=== PATIENT | male | born 1980 | race Two or more races ===

== ENCOUNTER 2025-10-15 04:58 | Emergency (ER) | payer OTHER ==
[~2025-10-15] VITALS: Ht 172.7 cm; Wt 87.1 kg
[2025-10-15] MEDS ORDERED: KETOROLAC TROMETHAMINE 60 MG VIAL IM ONE ×2 (05:30→07:39)
[2025-10-15] MEDS ORDERED: ACETAMINOPHEN 500 MG GEL..CAP PO ONE (05:30)
[2025-10-15] MEDS ORDERED: DEXAMETHASONE SODIUM PHOSPHATE 4 MG/ML VIAL IM ONE (05:30)
[2025-10-15] MEDS ORDERED: ORPHENADRINE CITRATE 30 MG/ML AMPUL IM ONE (05:30)
[2025-10-15] MEDS ORDERED: NORFLEX100MG PO (07:28)
[2025-10-15] MEDS ORDERED: KETO10TA2 PO (07:28)
[2025-10-15] MEDS ORDERED: PEPCID AC20 MG PO (07:28)
[2025-10-15] MEDS ORDERED: ORPHENADRINE CITRATE 30 MG/ML AMPUL ONE (07:39)
[2025-10-15] MEDS ORDERED: DEXAMETHASONE SODIUM PHOSPHATE 4 MG/ML VIAL ONE (07:40)
== END 2025-10-15 08:38 | disposition home or self-care (01) ==
LOC: ER 04:58
DX: S49.82XA Other specified injuries of left shoulder and upper arm, initial encounter (principal); W18.39XA Other fall on same level, initial encounter; Y93.89 Activity, other specified; Y92.018 Other place in single-family (private) house as the place of occurrence of the external cause; M25.512 Pain in left shoulder; S29.8XXA Other specified injuries of thorax, initial encounter